=== PATIENT | male | born 1965 | race African-American/Black ===

== ENCOUNTER 2022-04-10 13:40 | Inpatient (IN) | payer OTHER ==
[2022-04-10 14:15] VITALS: BMI 23.6
[2022-04-10] MEDS ORDERED: BISMUTH SUBSALICYLATE 262 MG/15 ML BTL PO PRN (14:41)
[2022-04-10] MEDS ORDERED: DICYCLOMINE HCL 10 MG CAPSULE PO PRN (14:41)
[2022-04-10] MEDS ORDERED: LOPERAMIDE HCL 2 MG CAPSULE PO PRN (14:41)
[2022-04-10] MEDS ORDERED: MAG HYDROX/AL HYDROX/SIMETH 30 ML UNIT-DOSE CUP PO PRN (14:41)
[2022-04-10] MEDS ORDERED: BENZOCAINE/MENTHOL (CHLORASEPTIC ) LOZENGE MM PRN (14:41)
[2022-04-10] MEDS ORDERED: IBUPROFEN 400 MG TABLET (FP) PO PRN (14:41)
[2022-04-10] MEDS ORDERED: MAGNESIUM HYDROX 2400MG/30ML ORAL SUSPENSION 30 ML CUP PO PRN (14:41)
[2022-04-10] MEDS ORDERED: MAGNESIUM CITRATE 300 ML BOTTLE PO PRN (14:41)
[2022-04-10] MEDS ORDERED: IBUPROFEN 600 MG TABLET (FP) PO PRN (14:41)
[2022-04-10] MEDS ORDERED: ONDANSETRON *ODT* 4 MG TABLET SL PRN (14:41)
[2022-04-10] MEDS ORDERED: ACETAMINOPHEN 325 MG TABLET (FP) PO PRN (14:41)
[2022-04-10] MEDS ORDERED: NICOTINE 10 MG CARTRIDGE (INHALER) IH PRN (14:41)
[2022-04-10 17:39] LABS: HEMATOCRIT 35.6 % (35.4-49); HEMOGLOBIN 11.8 GM/dL (11.7-16.9); MCH 23.8 pg (25.7-33.7); MCHC 33.1 g/dl (32.0-35.9); MEAN PLT VOLUME 8.3 fl (7.5-11.1); PLATELET COUNT 168 10^3/uL (134-434); RBC 4.95 M/mm3 (4.00-5.60); RDW 16.2 % (11.9-15.9)
[2022-04-10 17:44] LABS: ALBUMIN 3.5 g/dl (3.4-5.0); BLOOD UREA NITROGEN 7.4 mg/dL (7-18); CALCIUM 8.7 mg/dL (8.5-10.1)
[2022-04-10 17:47] LABS: CREATININE 0.8 mg/dL (0.55-1.3)
[2022-04-10 17:49] LABS: BILIRUBIN,TOTAL 0.6 mg/dL (0.2-1); TOT PROT 6.8 g/dl (6.4-8.2)
[2022-04-10 17:54] LABS: WHITE BLOOD COUNT 1.7 K/mm3 (4.0-10.0)
[2022-04-10] MEDS: hydrOXYzine PAMOATE 25 MG CAPSULE (FP) PO SCH ×2 (19:33→23:10)
[2022-04-10] MEDS: PRENATAL VITAMINS W/ FOLIC ACID TABLET (FP) PO SCH (19:33)
[2022-04-10] MEDS: diazePAM 5 MG TABLET PO SCH ×2 (19:33→23:11)
[2022-04-10] MEDS: MELATONIN 5 MG TABLETS PO SCH (23:10)
[2022-04-10] MEDS: THIAMINE HCL 100 MG TABLET (FP) PO SCH (23:11)
[2022-04-11] MEDS: hydrOXYzine PAMOATE 25 MG CAPSULE (FP) PO SCH ×5 (06:12→23:11)
[2022-04-11] MEDS: diazePAM 5 MG TABLET PO SCH ×4 (06:13→23:11)
[2022-04-11] MEDS: OFLOXACIN 0.3% OPHTHALMIC SOLUTION 5 ML BOTTLE OU SCH ×6 (06:13→23:10)
[2022-04-11] MEDS ORDERED: methaDONE HCL 10 MG TABLET PO SCH (08:00)
[2022-04-11] MEDS ORDERED: methaDONE HCL 10 MG TABLET ONE (09:57)
[2022-04-11] MEDS ORDERED: methaDONE HCL 40 MG DISPERSABLE TABLET ONE (09:58)
[2022-04-11] MEDS: PRENATAL VITAMINS W/ FOLIC ACID TABLET (FP) PO SCH (11:10)
[2022-04-11] MEDS: POTASSIUM CHLORIDE ORAL LIQUID 20 MEQ/15 ML PO SCH ×2 (11:11→23:10)
[2022-04-11] MEDS ORDERED: FLU VACC QS2021-22(6MOS UP)/PF 60 MCG/0.5 ML SYRINGE IM ONE (12:00)
[2022-04-11] MEDS: ACETAMINOPHEN 325 MG TABLET (FP) PO PRN ×2 (13:20→23:21)
[2022-04-11] MEDS: diazePAM 5 MG TABLET PO PRN (13:23)
[2022-04-11] MEDS: MELATONIN 5 MG TABLETS PO SCH (23:10)
[2022-04-11] MEDS: THIAMINE HCL 100 MG TABLET (FP) PO SCH (23:11)
[2022-04-11] MEDS: METHOCARBAMOL 500 MG TABLET PO PRN (23:23)
[2022-04-12] MEDS ORDERED: methaDONE HCL 10 MG TABLET ONE (04:34)
[2022-04-12] MEDS ORDERED: methaDONE HCL 40 MG DISPERSABLE TABLET ONE (04:34)
[2022-04-12] MEDS: diazePAM 5 MG TABLET PO SCH ×3 (05:38→23:25)
[2022-04-12] MEDS: hydrOXYzine PAMOATE 25 MG CAPSULE (FP) PO SCH ×5 (05:38→23:25)
[2022-04-12] MEDS: OFLOXACIN 0.3% OPHTHALMIC SOLUTION 5 ML BOTTLE OU SCH ×5 (05:39→23:24)
[2022-04-12] MEDS: PRENATAL VITAMINS W/ FOLIC ACID TABLET (FP) PO SCH (10:45)
[2022-04-12] MEDS: POTASSIUM CHLORIDE ORAL LIQUID 20 MEQ/15 ML PO SCH ×2 (10:45→23:23)
[2022-04-12] MEDS: diazePAM 5 MG TABLET PO PRN (10:46)
[2022-04-12] MEDS: predniSONE 10 MG TABLET (UD) PO SCH (12:06)
[2022-04-12 12:18] LABS: HEMATOCRIT 38.4 % (35.4-49); HEMOGLOBIN 12.3 GM/dL (11.7-16.9); MCH 23.5 pg (25.7-33.7); MCHC 31.9 g/dl (32.0-35.9); MEAN CELL VOLUME 73.6 fl (80-96); PLATELET COUNT 157 10^3/uL (134-434); RBC 5.22 M/mm3 (4.00-5.60); RDW 16.4 % (11.9-15.9)
[2022-04-12 12:42] LABS: WHITE BLOOD COUNT 1.8 K/mm3 (4.0-10.0)
[2022-04-12 14:51] LABS: ANISOCYTOSIS 2+; MACROCYTOSIS 0; OVALOCYTE 2+
[2022-04-12] MEDS: MELATONIN 5 MG TABLETS PO SCH (23:22)
[2022-04-12] MEDS: METHOCARBAMOL 500 MG TABLET PO PRN (23:22)
[2022-04-12] MEDS: THIAMINE HCL 100 MG TABLET (FP) PO SCH (23:25)
[2022-04-13] MEDS ORDERED: methaDONE HCL 10 MG TABLET ONE (04:17)
[2022-04-13] MEDS ORDERED: methaDONE HCL 40 MG DISPERSABLE TABLET ONE (04:17)
[2022-04-13] MEDS: hydrOXYzine PAMOATE 25 MG CAPSULE (FP) PO SCH ×2 (06:05→10:09)
[2022-04-13] MEDS: diazePAM 5 MG TABLET PO SCH ×2 (06:05→18:10)
[2022-04-13] MEDS: OFLOXACIN 0.3% OPHTHALMIC SOLUTION 5 ML BOTTLE OU SCH ×5 (07:01→22:47)
[2022-04-13] MEDS: predniSONE 10 MG TABLET (UD) PO SCH (10:09)
[2022-04-13] MEDS: PRENATAL VITAMINS W/ FOLIC ACID TABLET (FP) PO SCH (10:09)
[2022-04-13] MEDS ORDERED: hydrOXYzine PAMOATE 25 MG CAPSULE (FP) PO PRN (10:25)
[2022-04-13] MEDS: METHOCARBAMOL 500 MG TABLET PO PRN (22:46)
[2022-04-13] MEDS: THIAMINE HCL 100 MG TABLET (FP) PO SCH (22:46)
[2022-04-13] MEDS: MELATONIN 5 MG TABLETS PO SCH (22:47)
[2022-04-14] MEDS ORDERED: methaDONE HCL 40 MG DISPERSABLE TABLET ONE (04:54)
[2022-04-14] MEDS ORDERED: methaDONE HCL 10 MG TABLET ONE (04:54)
[2022-04-14] MEDS ORDERED: diazePAM 5 MG TABLET PO ONE (06:00)
[2022-04-14] MEDS: OFLOXACIN 0.3% OPHTHALMIC SOLUTION 5 ML BOTTLE OU SCH ×2 (07:29→11:12)
[2022-04-14 09:20] VITALS: BP 120/73; PULSE 91; TEMP 97.1
[2022-04-14] MEDS: PRENATAL VITAMINS W/ FOLIC ACID TABLET (FP) PO SCH (11:12)
[2022-04-14] MEDS: predniSONE 10 MG TABLET (UD) PO SCH (11:12)
== END 2022-04-14 10:01 | disposition home or self-care (01) | DRG 897 ==
LOC: YASAS 13:40 → Y3N 15:21
PROVIDERS: ADMIT Allergy & Immunology; ATTEND Surgery
PROC: HZ2ZZZZ Detoxification Services for Substance Abuse Treatment (ICD-10-PCS; principal; 2022-04-10)
DX: F10.230 Alcohol dependence with withdrawal, uncomplicated (principal); F11.20 Opioid dependence, uncomplicated; F13.20 Sedative, hypnotic or anxiolytic dependence, uncomplicated; F32.A Depression, unspecified; F41.9 Anxiety disorder, unspecified; D86.9 Sarcoidosis, unspecified; D72.819 Decreased white blood cell count, unspecified; H11.432 Conjunctival hyperemia, left eye; R26.2 Difficulty in walking, not elsewhere classified; Z99.89 Dependence on other enabling machines and devices; Z28.310 Unvaccinated for COVID-19; Z88.6 Allergy status to analgesic agent; Z56.0 Unemployment, unspecified
CPT/HCPCS: 36415; 80053; 84132; 85025; 85027; 86780; 87811; 93005; 93010; C9803-CS; U0003; U0005

== ENCOUNTER 2022-06-02 19:50 | Inpatient (IN) | payer OTHER ==
[2022-06-02] MEDS ORDERED: DIPHTH,PERTUSS(ACELL),TET 0.5 ML DISP.SYRIN IM ONE ×2 (20:51→20:57)
[2022-06-02 22:01] LABS: BASO % 0.5 % (0-2.0); EOS % 2.3 % (0-4.5); HEMATOCRIT 42.3 % (35.4-49); HEMOGLOBIN 14.1 GM/dL (11.7-16.9); LYMPH % 7.3 % (8-40); MCH 23.7 pg (25.7-33.7); MCHC 33.3 g/dl (32.0-35.9); MEAN CELL VOLUME 71.2 fl (80-96); MEAN PLT VOLUME 8.4 fl (7.5-11.1); MONO % 15.9 % (3.8-10.2); PLATELET COUNT 108 10^3/uL (134-434); RBC 5.94 M/mm3 (4.00-5.60); RDW 18.3 % (11.9-15.9); WHITE BLOOD COUNT 3.2 K/mm3 (4.0-10.0)
[2022-06-02 22:08] LABS: INR 1.07 (0.83-1.09); PROTHROMBIN TIME (PATIENT) 12.3 SEC (9.7-13.0)
[2022-06-02 22:10] LABS: ACTIVATED PTT 28.1 SECONDS (25.2-36.5)
[2022-06-02 22:23] LABS: CALCIUM 8.8 mg/dL (8.5-10.1)
[2022-06-02 22:24] LABS: ALBUMIN 3.8 g/dl (3.4-5.0); BLOOD UREA NITROGEN 16.6 mg/dL (7-18); MAGNESIUM 2.6 mg/dL (1.8-2.4)
[2022-06-02 22:27] LABS: CREATININE 0.7 mg/dL (0.55-1.3)
[2022-06-02 22:28] LABS: BILIRUBIN,TOTAL 0.9 mg/dL (0.2-1); TOT PROT 7.2 g/dl (6.4-8.2)
[2022-06-02] MEDS ORDERED: CEFTRIAXONE 1,000 MG in DEXTROSE 5%-WATER - 50 ML IVPB ONE (23:48)
[2022-06-02] MEDS ORDERED: AZITHROMYCIN IVPB 500 MG in DEXTROSE 5%-WATER - 250 ML IVPB ONE (23:48)
[2022-06-03] MEDS ORDERED: AZITHROMYCIN IVPB 500 MG/250 ML BAG IVPB ONE (00:18)
[2022-06-03] MEDS ORDERED: CEFTRIAXONE 1 GM/50 ML BAG ONE ×2 (01:49→15:20)
[2022-06-03] MEDS ORDERED: FOLIC ACID INJECTION - 1 MG, THIAMINE HCL 100 MG, MULTIVIT INJECTION ADULT 10 ML in SOD... IVPB ONE (02:13)
[2022-06-03] MEDS ORDERED: MAGNESIUM SULF 50% (8.12 MEQ/2 ML-1 GM VIAL) IVPB ONE (02:13)
[2022-06-03 07:05] LABS: BASO % 1.9 % (0-2.0); EOS % 1.9 % (0-4.5); HEMOGLOBIN 13.2 GM/dL (11.7-16.9); LYMPH % 7.8 % (8-40); MCH 23.2 pg (25.7-33.7); MEAN CELL VOLUME 70.3 fl (80-96); MEAN PLT VOLUME 8.4 fl (7.5-11.1); MONO % 10.4 % (3.8-10.2); PLATELET COUNT 106 10^3/uL (134-434); RBC 5.69 M/mm3 (4.00-5.60); RDW 18.1 % (11.9-15.9); WHITE BLOOD COUNT 2.8 K/mm3 (4.0-10.0)
[2022-06-03 07:28] LABS: BLOOD UREA NITROGEN 11.7 mg/dL (7-18); CALCIUM 8.7 mg/dL (8.5-10.1)
[2022-06-03 07:29] LABS: ALBUMIN 3.5 g/dl (3.4-5.0); MAGNESIUM 2.3 mg/dL (1.8-2.4)
[2022-06-03 07:32] LABS: CREATININE 0.6 mg/dL (0.55-1.3); PHOSPHOROUS 4.8 mg/dL (2.5-4.9)
[2022-06-03 07:33] LABS: BILIRUBIN,TOTAL 0.9 mg/dL (0.2-1); TOT PROT 6.8 g/dl (6.4-8.2)
[2022-06-03 09:38] LABS: HIV INTERPRETATION NEGATIVE (NEGATIVE)
[2022-06-03 09:53] LABS: PH,URINE 5.5 (5.0-8.0); URINE APPEARANCE CLEAR; URINE BILIRUBIN NEGATIVE (NEGATIVE); URINE COLOR YELLOW; URINE GLUCOSE (UA) NEGATIVE (NEGATIVE); URINE KETONE NEGATIVE (NEGATIVE); URINE LEUK ESTERASE NEGATIVE (NEGATIVE); URINE NITRITE NEGATIVE (NEGATIVE); URINE PROTEIN NEGATIVE (NEGATIVE); URINE UROBILINOGEN 0.2 mg/dL (0.2-1.0)
[2022-06-03 10:01] LABS: COCAINE, UR NEGATIVE (NEGATIVE); OPIATES, URI NEGATIVE (NEGATIVE); URINE AMPHETAMINES NEGATIVE (NEGATIVE)
[2022-06-03] MEDS ORDERED: ENOXAPARIN NA (PORCINE) 40 MG/0.4 ML DISP.SYRIN SQ ONE (10:01)
[2022-06-03 10:02] LABS: METHADONE, UR POSITIVE (NEGATIVE); PHENCYCLIDINE,URINE NEGATIVE (NEGATIVE); URINE BARBITURATES NEGATIVE (NEGATIVE); URINE BENZODIAZEPINES POSITIVE (NEGATIVE)
[2022-06-03] MEDS: ENOXAPARIN NA (PORCINE) 40 MG/0.4 ML DISP.SYRIN SQ SCH (10:32)
[2022-06-03] MEDS ORDERED: methaDONE HCL 10 MG TABLET (FOR DETOX USE ONLY) PO SCH (14:00)
[2022-06-03] MEDS ORDERED: methaDONE HCL 40 MG DISPERSABLE TABLET PO ONE (14:15)
[2022-06-03] MEDS ORDERED: methaDONE HCL 40 MG DISPERSABLE TABLET ONE (15:19)
[2022-06-03] MEDS: CEFTRIAXONE 1 GM in DEXTROSE 5%-WATER - 50 ML IVPB SCH (15:25)
[2022-06-03 17:17] VITALS: BMI 25.1
[2022-06-03] MEDS: DOXYCYCLINE INJECTION 100 MG in DEXTROSE 5%-WATER 100 ML IVPB SCH (21:50)
[2022-06-04] MEDS: ACETAMINOPHEN 500 MG TABLET (FP) PO PRN ×2 (01:05→23:17)
[2022-06-04] MEDS: DOXYCYCLINE INJECTION 100 MG in DEXTROSE 5%-WATER 100 ML IVPB SCH ×2 (10:11→21:40)
[2022-06-04] MEDS: CEFTRIAXONE 1 GM in DEXTROSE 5%-WATER - 50 ML IVPB SCH (10:11)
[2022-06-04] MEDS: ENOXAPARIN NA (PORCINE) 40 MG/0.4 ML DISP.SYRIN SQ SCH (10:12)
[2022-06-04 11:08] LABS: BASO % 0.7 % (0-2.0); EOS % 2.7 % (0-4.5); HEMATOCRIT 39.8 % (35.4-49); HEMOGLOBIN 12.7 GM/dL (11.7-16.9); LYMPH % 11.3 % (8-40); MCHC 31.9 g/dl (32.0-35.9); MEAN CELL VOLUME 72.2 fl (80-96); MEAN PLT VOLUME 9.1 fl (7.5-11.1); MONO % 13.9 % (3.8-10.2); NEUT % 71.4 % (42.8-82.8); PLATELET COUNT 111 10^3/uL (134-434); RBC 5.51 M/mm3 (4.00-5.60); RDW 17.9 % (11.9-15.9); WHITE BLOOD COUNT 2.3 K/mm3 (4.0-10.0)
[2022-06-04] MEDS ORDERED: GABAPENTIN 300 MG CAPSULE PO ONE (11:12)
[2022-06-04] MEDS ORDERED: SODIUM CHLORIDE 0.9% IVPB ONE (11:13)
[2022-06-04] MEDS ORDERED: methaDONE HCL 10 MG TABLET (FOR DETOX USE ONLY) PO SCH (11:39)
[2022-06-04 13:24] LABS: ALBUMIN 3.3 g/dl (3.4-5.0); BILIRUBIN,TOTAL 0.8 mg/dL (0.2-1); BLOOD UREA NITROGEN 12.3 mg/dL (7-18); CALCIUM 8.6 mg/dL (8.5-10.1); CREATININE 0.7 mg/dL (0.55-1.3); TOT PROT 6.4 g/dl (6.4-8.2)
[2022-06-05] MEDS: ENOXAPARIN NA (PORCINE) 40 MG/0.4 ML DISP.SYRIN SQ SCH (10:52)
[2022-06-05] MEDS: CEFTRIAXONE 1 GM in DEXTROSE 5%-WATER - 50 ML IVPB SCH (10:52)
[2022-06-05] MEDS: DOXYCYCLINE INJECTION 100 MG in DEXTROSE 5%-WATER 100 ML IVPB SCH (10:52)
[2022-06-05] MEDS: DOXYCYCLINE HYCLATE 100 MG CAPSULE PO SCH (17:58)
[2022-06-05 18:12] VITALS: RESP 18
[2022-06-05] MEDS: CEFUROXIME AXETIL 500 MG TABLET PO SCH (23:03)
[2022-06-06] MEDS: DOXYCYCLINE HYCLATE 100 MG CAPSULE PO SCH ×2 (10:03→17:38)
[2022-06-06] MEDS: ENOXAPARIN NA (PORCINE) 40 MG/0.4 ML DISP.SYRIN SQ SCH (10:03)
[2022-06-06] MEDS: CEFUROXIME AXETIL 500 MG TABLET PO SCH ×3 (10:03→21:09)
[2022-06-06] MEDS: ONDANSETRON 4 MG/2 ML VIAL IVPUSH ONE ×2 (22:08→22:10)
[2022-06-06] MEDS ORDERED: ONDANSETRON 4 MG TABLET PO ONE (22:14)
[2022-06-07] MEDS: ACETAMINOPHEN 500 MG TABLET (FP) PO PRN (06:29)
[2022-06-07 06:46] VITALS: BP 117/73; PULSE 83; TEMP 98.9
[2022-06-07] MEDS: DOXYCYCLINE HYCLATE 100 MG CAPSULE PO SCH (09:12)
[2022-06-07] MEDS: CEFUROXIME AXETIL 500 MG TABLET PO SCH (09:12)
[2022-06-07] MEDS: ENOXAPARIN NA (PORCINE) 40 MG/0.4 ML DISP.SYRIN SQ SCH (09:12)
== END 2022-06-07 09:34 | disposition home or self-care (01) | DRG 194 ==
LOC: JER 19:50 → JERBED 06-03 01:35 → J5S 06-03 17:02
PROVIDERS: ADMIT Hospitalist; ATTEND Internal Medicine
DX: J18.9 Pneumonia, unspecified organism (principal); F11.20 Opioid dependence, uncomplicated; F10.10 Alcohol abuse, uncomplicated; F17.210 Nicotine dependence, cigarettes, uncomplicated; D69.6 Thrombocytopenia, unspecified; D86.0 Sarcoidosis of lung; R29.6 Repeated falls; W18.30XA Fall on same level, unspecified, initial encounter; Y92.238 Other place in hospital as the place of occurrence of the external cause
CPT/HCPCS: 36415; 70450-TC; 71045-TC-FY; 72125-TC; 72128-TC; 72131-TC; 73030-TC-LT-FY; 80053; 80307; 81003; 83735; 84100; 85025; 85610; 85730; 86850; 86900; 86901; 87086; 87389; 90715; 93005; 93010; 97116-GP; 97162-GP; 99285-25; C9803-CS; U0003; U0005